=== PATIENT | female | born 1975 | race Caucasian/White ===

== ENCOUNTER 2017-12-24 17:41 | Emergency (ER) | payer MEDICAID ==
[~2017-12-24] VITALS: Ht 165.1 cm; Wt 63.6 kg
[2017-12-24] MEDS ORDERED: IBUPROFEN 600MG TABLET PO ONE (19:15)
[2017-12-24] MEDS ORDERED: BACITRACIN ZINC OINT UDPKT TOP ONE (19:15)
[2017-12-24] MEDS ORDERED: TETANUS AND DIPHTHERIA TOX/PF 0.5ML SYR (ADULT) IM ONE (19:15)
[2017-12-24] MEDS ORDERED: TETANUS, DIPHTHERIA, PERTUSSIS VAC/PF 0.5ML (>7YR OLD) IM ONE (20:30)
[2017-12-24 21:14] VITALS: BP 121/79
== END 2017-12-24 21:20 | disposition home or self-care (01) ==
LOC: ER 18:52
DX: S51.852A Open bite of left forearm, initial encounter (principal); W54.0XXA Bitten by dog, initial encounter; Y93.89 Activity, other specified; Y92.89 Other specified places as the place of occurrence of the external cause
CPT/HCPCS: 90471; 90714; 90715; 99283

== ENCOUNTER 2018-03-04 06:59 | Emergency (ER) | payer MEDICAID ==
[~2018-03-04] VITALS: Ht 165.1 cm; Wt 63.0 kg
[2018-03-04] MEDS ORDERED: SODIUM CHLORIDE 0.9% 1,000 ML IV ONE (07:39)
[2018-03-04] MEDS ORDERED: ONDANSETRON HCL 4MG/2ML VIAL IV STA (07:39)
[2018-03-04] MEDS ORDERED: MECLIZINE 25MG TABLET PO ONE (07:45)
[2018-03-04 09:49] VITALS: BP 102/67
== END 2018-03-04 09:57 | disposition home or self-care (01) ==
LOC: ER 08:20
DX: H81.10 Benign paroxysmal vertigo, unspecified ear (principal)
CPT/HCPCS: 81025; 93005; 96361; 96374; 99285; J2405; J7030; Z7610; J8597